=== PATIENT | male | born 1945 | race Caucasian/White ===

== ENCOUNTER 2017-11-03 11:38 | Outpatient (CLI) | payer MEDICARE ==
[2017-11-03 14:52] LABS: Hematocrit 40.3 % (42.0-52.0); Mean Platelet Volume 8.3 fL (7.4-10.4); Red Blood Cell (RBC) Count 3.91 mill/uL (4.70-6.10); White Blood Cell (WBC) Count 7.7 thou/uL (4.8-10.8)
[2017-11-03 15:13] LABS: ALT (SGPT) 58 U/L (8-55); AST (SGOT) 42 U/L (5-34); Alkaline Phosphatase 94 U/L (40-150); Anion Gap 10 mmol/L (10-20); BUN (Urea Nitrogen) 30 mg/dL (8.4-25.7); Bilirubin, Total 1.3 mg/dL (0.2-1.2); Calc. Creatinine Clearance 0 mL/min (70-130); Calcium 9.6 mg/dL (7.8-10.44); Carbon Dioxide 30 mmol/L (23-31); Chloride 103 mmol/L (98-107); Estimated GFR-MDRD 63; Globulin 2.8 g/dL (2.4-3.5); Protein, Total 6.4 g/dL (5.8-8.1)
== END 2017-11-03 11:39 | disposition home or self-care (01) ==
LOC: LABBT 11:38
PROVIDERS: ATTEND Internal Medicine Cardiovascular Disease
DX: Z01.812 Encounter for preprocedural laboratory examination (principal)
CPT/HCPCS: 80053; 85027

== ENCOUNTER 2017-11-05 05:51 | Observation (INO) | payer MEDICARE ==
[2017-11-05] MEDS ORDERED: Diazepam 5 MG TAB ONE (06:38)
[2017-11-05] MEDS ORDERED: Heparin 1000 UNIT/NS 500ML(OR) 1,000 ML ONE (06:40)
[2017-11-05] MEDS ORDERED: Diazepam 5 MG TAB PO SCH (06:45)
[2017-11-05] MEDS ORDERED: Midazolam HCl 2 mg/2 ml Vial ONE (07:36)
[2017-11-05] MEDS ORDERED: Fentanyl 100 MCG/2 ML VIAL ONE ×2 (07:36→12:48)
[2017-11-05] MEDS ORDERED: Nitroglycerin 100MG/250ML BOT 250 ML ONE (07:55)
[2017-11-05] MEDS ORDERED: Heparin 10,000 UNITS/1 ML VIAL ONE (08:19)
[2017-11-05] MEDS ORDERED: Heparin 1000 UNIT/NS 500ML(OR) 500 ML ONE (08:19)
[2017-11-05] MEDS ORDERED: Furosemide 20 MG/2 ML VIAL ONE ×2 (10:15→18:35)
[2017-11-05] MEDS ORDERED: Nitroglycerin 0.4 MG TAB (25 Tab Bottle) ONE (10:22)
[2017-11-05] MEDS ORDERED: Nitroglycerin 2% Ointment 1 INCH/1 GM Packet ONE (10:22)
[2017-11-05] MEDS ORDERED: Sodium Chloride 0.9% 1,000 ML IV SCH ×2 (14:49→18:00)
[2017-11-05] MEDS ORDERED: Fentanyl 100 MCG/2 ML VIAL SLOW IVP SCH (15:00)
[2017-11-05] MEDS ORDERED: Iopamidol 370 76% 100 ML VIAL ONE (16:16)
[2017-11-05] MEDS ORDERED: Iopamidol 370 76% 50 ML VIAL FS ONE (16:16)
[2017-11-05 20:15] VITALS: BMI 35.0
[2017-11-05] MEDS ORDERED: TICAGRELOR 90 MG TABLET PO SCH (21:00)
[2017-11-05] MEDS ORDERED: Lisinopril 5 MG TAB PO SCH (21:00)
[2017-11-05] MEDS ORDERED: Potassium Chloride 20 MEQ TAB PO SCH (21:00)
[2017-11-05] MEDS ORDERED: Carvedilol 6.25 MG TAB PO SCH (21:00)
[2017-11-06 05:18] LABS: #Eosinphils 0.2 thou/uL (0.0-0.7); #Neutrophils 5.8 thou/uL (1.40-6.50); %Eosinophils 2.3 % (0.0-10.0); %Lymphocytes 12.9 % (21.0-51.0); %Monocytes 12.3 % (0.0-10.0); Hematocrit 43.1 % (42.0-52.0); Red Blood Cell (RBC) Count 4.25 mill/uL (4.70-6.10)
[2017-11-06 05:28] LABS: Anion Gap 12 mmol/L (10-20); BUN (Urea Nitrogen) 28 mg/dL (8.4-25.7); Calc. Creatinine Clearance 104 mL/min (70-130); Calcium 9.5 mg/dL (7.8-10.44); Carbon Dioxide 29 mmol/L (23-31); Chloride 102 mmol/L (98-107); Estimated GFR-MDRD 66
[2017-11-06] MEDS ORDERED: Furosemide 20 MG/2 ML VIAL SLOW IVP SCH (06:00)
[2017-11-06] MEDS ORDERED: Clopidogrel Bisulfate 300 MG TAB PO SCH (07:00)
[2017-11-06 07:47] VITALS: TEMP 98.6
[2017-11-06] MEDS ORDERED: Carvedilol 6.25 MG TAB PO SCH ×2 (09:00)
[2017-11-06] MEDS ORDERED: Potassium Chloride 20 MEQ TAB PO SCH (09:00)
[2017-11-06] MEDS ORDERED: Lisinopril 5 MG TAB PO SCH (09:00)
[2017-11-06] MEDS ORDERED: Carvedilol 25 MG TAB PO SCH (09:00)
[2017-11-06 10:12] VITALS: BP 110/73
--- NOTE | 2017-11-06 10:43 | DIS ---
HISTORY: Mr. Rasheed underwent cardiac catheterization yesterday and was found to have a 70% in-stent restenosis of his LAD stent. He had 2 previous nondrug coated stent placed. There is also a 20% pl aque distal to the stent. The patient had 3.5 x 16 mm drug-coated stent placed, post-dilated to 3.5 mm and then 4 mm. The distal vessel appears to be closer to 3-3.25 mm past the stent. Ejection frac tion was 40%. The patient did have some shortness of breath afterwards. He had increase in diastoli c pressure. He did have some degree of heart failure. He diuresed dramatically with 5 liters out ye afternoon and more urine at last night. He feels much better and is released home today on, 1. Aspirin 81 mg a day. 2. Atorvastatin 40 mg a day. 3. Carvedilol 25 mg twice daily. 4. Plavix 75 mg a day. 5. Furosemide 20 mg a day. 6. Lisinopril 5 mg twice daily. 7. Magnesium. 8. Xarelto 15 mg a day, start tomorrow.
[2017-11-06] MEDS ORDERED: Atorvastatin Calcium 40 MG TAB PO SCH (21:00)
[2017-11-07] MEDS ORDERED: Clopidogrel Bisulfate 75 MG TAB PO SCH (09:00)
[2017-11-07] MEDS ORDERED: Furosemide 20 MG TAB PO SCH (09:00)
[2017-11-08] MEDS ORDERED: Rivaroxaban 10 MG TAB PO SCH (18:00)
--- NOTE | 2017-11-21 13:26 | EKG ---
Test Reason : POST STENT Blood Pressure : / mmHG Vent. Rate : 060 BPM Atrial Rate : 227 BPM P-R Int : 000 ms QRS Dur : 088 ms QT Int : 452 ms P-R-T Axes : 000 -03 258 degrees QTc Int : 452 ms Atrial fibrillation Septal infarct , age undetermined Abnormal ECG When compared with ECG of 15-DEC-2014 07:39, No significant change was found Confirmed by ALEK SHAIKH, JENNIFER ([id number]) on 11/21/2017 1:25:49 PM Referred By: THAI Confirmed By:JENNIFER GASTON MD
--- NOTE | 2017-11-21 13:28 | EKG ---
Test Reason : Blood Pressure : / mmHG Vent. Rate : 067 BPM Atrial Rate : 277 BPM P-R Int : 000 ms QRS Dur : 090 ms QT Int : 414 ms P-R-T Axes : 000 -07 237 degrees QTc Int : 437 ms Atrial fibrillation Septal infarct (cited on or before 14-DEC-2014) Abnormal ECG Confirmed by JENNIFER GASTON MD ([id number]) on 11/21/2017 1:27:36 PM Referred By: THAI Confirmed By:JENNIFER GASTON MD
== END 2017-11-06 11:29 | disposition home or self-care (01) ==
LOC: CCL 05:51 → 2SW 19:18
PROVIDERS: ADMIT Internal Medicine Cardiovascular Disease; ATTEND Internal Medicine Cardiovascular Disease
DX: T82.855A Stenosis of coronary artery stent, initial encounter (principal); I25.118 Atherosclerotic heart disease of native coronary artery with other forms of angina pectoris; E78.00 Pure hypercholesterolemia, unspecified; I11.0 Hypertensive heart disease with heart failure; I50.9 Heart failure, unspecified; I48.0 Paroxysmal atrial fibrillation; Z79.82 Long term (current) use of aspirin; Z79.01 Long term (current) use of anticoagulants; Z79.02 Long term (current) use of antithrombotics/antiplatelets; Z79.899 Other long term (current) drug therapy; Z88.6 Allergy status to analgesic agent; Z87.891 Personal history of nicotine dependence; Z86.73 Personal history of transient ischemic attack (TIA), and cerebral infarction without residual deficits
CPT/HCPCS: 76942; 80048; 85025; 85347 ×3; 93005 ×2; 93458; 93798; 96374; 96375; 96376; C1769 ×2; C1874; C1887; C9600; G0378; 36415; 92928; 93010; 99152; 99153; J1644; J1940; J2250; J3010

== ENCOUNTER 2018-03-09 15:02 | Inpatient (IN) | payer MEDICARE ==
[2018-03-09] MEDS ORDERED: Furosemide 100 MG/10 ML VIAL SLOW IVP SCH (15:30)
[2018-03-09 16:01] VITALS: BMI 37.3
[2018-03-09 16:21] LABS: #Eosinphils 0.3 thou/uL (0.0-0.7); #Lymphocytes 1.3 thou/uL (1.20-3.40); #Monocytes 0.8 thou/uL (0.11-0.59); #Neutrophils 4.3 thou/uL (1.40-6.50); %Basophils 0.6 % (0.0-1.0); %Eosinophils 4.9 % (0.0-10.0); %Lymphocytes 18.7 % (21.0-51.0); %Monocytes 11.8 % (0.0-10.0); Hemoglobin 11.8 g/dL (14.0-18.0); Mean Corpuscular Hemoglobin 33.6 pg (27.0-31.0); Mean Platelet Volume 8.3 fL (7.4-10.4); Platelet Count 135 thou/uL (130-400); RBC Distribution Width 13.6 % (11.5-14.5); White Blood Cell (WBC) Count 6.8 thou/uL (4.8-10.8)
[2018-03-09 16:49] LABS: Troponin I 0.014 ng/mL (< 0.028)
[2018-03-09 16:58] LABS: ALT (SGPT) 33 U/L (8-55); AST (SGOT) 23 U/L (5-34); Albumin 3.5 g/dL (3.4-4.8); Alkaline Phosphatase 100 U/L (40-150); Anion Gap 10 mmol/L (10-20); BUN (Urea Nitrogen) 28 mg/dL (8.4-25.7); Bilirubin, Total 0.8 mg/dL (0.2-1.2); Calc. Creatinine Clearance 104 mL/min (70-130); Calcium 8.9 mg/dL (7.8-10.44); Carbon Dioxide 23 mmol/L (23-31); Chloride 113 mmol/L (98-107); Estimated GFR-MDRD 62; Globulin 2.7 g/dL (2.4-3.5); Glucose 82 mg/dL (80-115); Potassium 4.4 mmol/L (3.5-5.1); Protein, Total 6.2 g/dL (5.8-8.1); Sodium 142 mmol/L (136-145)
[2018-03-09] MEDS ORDERED: Potassium Chloride 20 MEQ TAB PO SCH ×2 (17:45)
--- NOTE | 2018-03-09 19:18 | ULT ---
CAROTID DUPLEX ULTRASOUND: 03/09/18 INDICATION: History of syncope. FINDINGS: There is mild atherosclerotic calcification involving the proximal internal carotid arteries bilatera lly. The waveforms and velocities within the internal carotid arteries are within normal limits. Ther e is antegrade flow within both vertebral arteries. Peak systolic velocity of the right CCA was 46.8 cm/s and in the left CCA 47.7 cm/s. Peak systolic velocity in the right ICA was 60.6 cm/s and left ICA was 31.3 cm/s. Right IC/CC ratio is 1.29 and the left is 0.66. IMPRESSION: 1. No hemodynamically significant stenosis. 2. Mildly complex cystic lesion involving the right thyroid gland measuring 1.2 x 1 cm. No follo wup is recommended due to the size of the lesion. POS: [facility]
--- NOTE | 2018-03-09 20:12 | RAD ---
AP VIEW OF THE CHEST: 03/09/18 INDICATION: History of CHF. FINDINGS: There is mild cardiomegaly with mild pulmonary vascular congestion. There is patchy air space opaciti es within the right lower lobe which may reflect edema. There is minimal blunting in the costophrenic angles suspicious for small effusions. There is heel deformity in the right clavicle. There is scatt ered degenerative change. There is postsurgical change involving the left shoulder consistent with a rotator cuff repair. IMPRESSION: 1. Mild cardiomegaly with mild pulmonary vascular congestion. Tiny bilateral pleural effusions. 2. Patchy opacities within the right lower lobe may reflect air space edema or pneumonia. Recomm end followup. POS: [facility]
[2018-03-09] MEDS: Carvedilol 6.25 MG TAB PO SCH (20:20)
[2018-03-09] MEDS: Enoxaparin Sodium 80 MG/0.8 ML SYRINGE SC SCH (20:21)
[2018-03-09] MEDS: Atorvastatin Calcium 40 MG TAB PO SCH (20:21)
[2018-03-09] MEDS ORDERED: Enoxaparin Sodium 60 MG/0.6 ML SYRINGE SC SCH (21:00)
[2018-03-09] MEDS ORDERED: Prevnar 13-Val Conj/PF 0.5 ML SYRINGE IM ONE (21:00)
[2018-03-10 05:11] LABS: Anion Gap 10 mmol/L (10-20); BUN (Urea Nitrogen) 25 mg/dL (8.4-25.7); Calc. Creatinine Clearance 102 mL/min (70-130); Calcium 9.5 mg/dL (7.8-10.44); Carbon Dioxide 26 mmol/L (23-31); Cardiac Risk 3.2 (Less than 4.5); Chloride 108 mmol/L (98-107); Cholesterol 110 mg/dl (< 200 Desired); Estimated GFR-MDRD 60; Glucose 94 mg/dL (80-115); HDL Cholesterol 34 mg/dL (>60 Neg Risk); LDL Cholesterol, Calculated 64 mg/dL; Potassium 4.2 mmol/L (3.5-5.1); Sodium 140 mmol/L (136-145); Triglycerides 60 mg/dL (Less than 150)
[2018-03-10] MEDS: Furosemide 40 MG/4 ML VIAL SLOW IVP SCH ×2 (05:24→15:42)
--- NOTE | 2018-03-10 07:55 | HP ---
HISTORY OF PRESENT ILLNESS: Mr. Rasheed is a very pleasant 72-year-old gentleman. The patient has a long history of chronic atrial fibrillation and congestive heart failure which had been compensated u p until recently. He underwent cardiac catheterization on 2014 and had at that time a nondrug coated stent placed as he was requiring anticoagulation and also is very active with rodeo, therefore he un derwent stent implantation. A year later on 01/2016, he was found to have restenosis and he underwen t repeat stenting. At this time, a 3.5 x 29 nondrug coated stent was placed and postdilated to 4 mm and then approximated 4.5 mm. A year and half later, the patient had restenosis and underwent stenti ng. At this time, a drug-coated stent was placed. A 3.5 x 16 drug-coated stent was placed and postd ilated to 3.5 mm high pressure than 4 mm. He set up well up until recently. He was seen in January an d was noted that he had some shortness of breath and fluid retention and some chest tightness with so me compatible with heart failure and the diuretic dose was increased. He came back to see us in the office on 03/05/2018 after having an episode of syncope. It is concerning that he may have had a mulugeta se in his heart rhythm, monitor was placed and the diuretic was held, came back for followup today. His breathing has worsened. The patient can only walk few steps before getting short of breath. He has no energy. He feels very lightheaded at times and cannot continue to function at home in this [facility]. CURRENT MEDICATIONS: He is on aspirin 81 mg a day, atorvastatin 40 mg a day, Coreg 12.5 mg twice a d ay, lisinopril 10 mg a day, Plavix 75 mg a day and Xarelto 15 mg a day. ALLERGIES: None known. SOCIAL HISTORY: He does not smoke, does not use tobacco, no alcohol. REVIEW OF SYSTEMS: CONSTITUTIONAL: No significant weight gain or loss. VISION: No changes. HEARI NG: No changes. PULMONARY: No cough or wheezing. GASTROINTESTINAL: No nausea, vomiting, diarrhea . SKIN: No rashes. NEUROLOGIC: No unilateral weakness or numbness. PSYCHIATRIC: No unusual depr ession or anxiety. HEMATOLOGIC: No unusual bruising. GENITOURINARY: No burning with urination. EX TREMITIES: He does have a lot of edema. PHYSICAL EXAMINATION: GENERAL: This is a pleasant elderly gentleman says he feels very weak and fatigued, no energy, which is not like it all. VITAL SIGNS: His blood pressure is 120/70, pulse is in the 80s, it is irregular. EYES: Sclerae nonicteric. MOUTH: Mucous membranes moist. NECK: Supple, no lymphadenopathy. LUNGS: Clear, no wheezing, rales or rhonchi. It seems like there is some decreased breath sounds at the right. CARDIAC: Irregularly irregular. No murmur, rub or gallop. ABDOMEN: Soft, nontender. EXTREMITIES: There is moderate to severe peripheral edema. IMAGING DATA: EKG reveals atrial fibrillation with controlled ventricular response. ASSESSMENT: 1. Congestive heart failure with systolic and diastolic combined in view of atrial fibrillation. Mo st recent catheterization showed ejection fraction of 40%, which is where he has been mostly. 2. The patient is currently volume overloaded and short of breath with minimal activity. 3. Coronary artery disease and had stent implantation on three occasions in the LAD. If he has had further restenosis, would probably need surgical therapy. 4. Atrial fibrillation. He has been on Xarelto and slightly reduced dose as he is on dual antiplate let drugs. PLAN: 1. Intravenous diuretic. 2. Repeat echo. 3. Carotid Doppler in view of syncope. 4. He will be monitored in case he is having pauses so far that the home monitor did not have any pa uses. Further recommendations are based on clinical course. We will probably need cardiac catheteri zation this admission. If he has had restenosis, may need surgical therapy. We will hold Plavix as well.
[2018-03-10] MEDS: Lisinopril 10 MG TAB PO SCH (08:20)
[2018-03-10] MEDS: Enoxaparin Sodium 80 MG/0.8 ML SYRINGE SC SCH ×3 (08:20→20:08)
[2018-03-10] MEDS: Carvedilol 6.25 MG TAB PO SCH ×2 (08:20→20:07)
[2018-03-10] MEDS: Aspirin 81 mg Enteric Coated Tablet PO SCH (08:20)
[2018-03-10] MEDS ORDERED: Clopidogrel Bisulfate 75 MG TAB PO SCH (09:00)
[2018-03-10] MEDS ORDERED: Communication Order-Pharmacy FS SCH (10:00)
--- NOTE | 2018-03-10 10:07 | PRG ---
DATE OF SERVICE: 03/10/2018 HISTORY: Mr. Rasheed feels better today. He put out 5 liters of urine last night. PHYSICAL EXAMINATION: VITAL SIGNS: Blood pressure is still variable, it is 155/117 recorded earlier, 146/92 another readin g. LUNGS: Clear. CARDIAC: Irregular, irregular. ABDOMEN: Soft, nontender. EXTREMITIES: Mild edema. PERTINENT LABORATORY DATA: BNP 1361, potassium 4.2. The troponin level 0.014, LDL 64. ASSESSMENT: 1. Congestive heart failure, systolic/diastolic combined, acute on chronic, improving, but he was hy poxic yesterday. Oxygen saturation 87%. 2. Previous coronary disease with stent implantation in the LAD on three occasions. Most recent alejandrina nt was a drug-coated stent. PLAN: 1. Echocardiogram to be done today. 2. Cardiac catheterization tomorrow. If the patient has had restenosis would likely need bypass lenin araceli. 3. He is on enoxaparin presently. He has been taken off of the Xarelto.
[2018-03-10] MEDS: Atorvastatin Calcium 40 MG TAB PO SCH (20:08)
[2018-03-11] MEDS: Carvedilol 6.25 MG TAB PO SCH ×2 (05:49→21:04)
[2018-03-11] MEDS ORDERED: Diazepam 5 MG TAB PO SCH (06:00)
[2018-03-11] MEDS ORDERED: Sodium Chloride 0.9% 1,000 ML IV SCH (06:00)
[2018-03-11] MEDS ORDERED: Lidocaine 1% (PF) 30 ML VIAL ONE (06:40)
[2018-03-11] MEDS ORDERED: Fentanyl 100 MCG/2 ML VIAL ONE (07:39)
[2018-03-11] MEDS ORDERED: Midazolam HCl 2 mg/2 ml Vial ONE (07:39)
[2018-03-11] MEDS ORDERED: Metoprolol Tartrate 5 MG/5 ML VIAL ONE (07:50)
[2018-03-11] MEDS ORDERED: Nitroglycerin 0.4 MG TAB (25 Tab Bottle) SL PRN (08:20)
[2018-03-11] MEDS ORDERED: Acetaminophen/Codeine 30-300mg Tablet PO PRN ×2 (08:20)
[2018-03-11] MEDS ORDERED: traMADol HCl 50 MG TAB PO PRN (08:20)
[2018-03-11] MEDS ORDERED: Sodium Chloride 0.9% 200 ML IV SCH (08:30)
[2018-03-11] MEDS: Aspirin 81 mg Enteric Coated Tablet PO SCH (09:54)
[2018-03-11] MEDS: Lisinopril 10 MG TAB PO SCH (09:55)
[2018-03-11] MEDS: Furosemide 40 MG/4 ML VIAL SLOW IVP SCH ×2 (09:56→13:46)
[2018-03-11] MEDS ORDERED: Iopamidol 370 76% 100 ML VIAL ONE (10:13)
[2018-03-11] MEDS ORDERED: Lidocaine 1% w/Epinephrine 1:100K 30 ML VIAL ONE (11:35)
--- NOTE | 2018-03-11 12:57 | CON ---
DATE OF CONSULTATION: 03/11/2018 REFERRING PHYSICIAN: Dr. Tianna Stone HISTORY OF PRESENT ILLNESS: I am seeing Mr. Rasheed at our [facility] telemetry floor as an electrophysiology security consultant for the following problems for: 1. Recurrent syncopal spells. 2. Chronic systolic congestive heart failure with ischemic cardiomyopathy. A. Left ventricular ejection fraction 40-45% on a 2D echocardiogram on 03/10/2018, mild right ventri cular enlargement. Left atrial enlargement, mild to moderate mitral regurgitation, moderate tricuspi d regurgitation. B. Left heart catheterization today reveals a 40% global hypokinesis, a patent LAD stent, normal cir cumflex and nondominant RCA. 3. Chronic atrial fibrillation. 4. Chronic risk factors including hyperlipidemia, hypertension. ALLERGIES: None. MEDICATIONS AT HOME: Include aspirin, atorvastatin, Coreg, lisinopril, Plavix and Xarelto 50 mg a da y. SUBJECTIVE: Mr. Rasheed is here, admitted to Dr. Stone due to a recurrent syncopal spells. He was a lso having progressive dyspnea and fluid retention. He required a diuretic increase, but then develo ped syncopal spell, felt to be possibly orthostatic, but rhythm related issues could not completely b e ruled out. His episodes are described in various settings, one after bending over and straightenin g up, lightheadedness, no tongue biting or seizure activities or incontinence is documented. Other e pisodes also happen at night when he was getting up to the toilet. Eventually his diuretic dose was again decreased but his dyspnea worsened again. Finally he underwent a left heart catheterization as per Dr. Stone today. I was consulted for further evaluation of syncopal spells. Currently, he is feeling well, recovering from a left heart catheterization. Denies PND, orthopnea, lower extremity edema. No fever, chills or cough. No dizziness at this point. REVIEW OF SYSTEMS: Rest of 12 point system otherwise unremarkable. PAST MEDICAL HISTORY: As above. He had a history of coronary artery disease. Again, heart catheter ization in 2014 revealing LAD territories stenosis, which was stented. In 01/2016 had restenosis in the same area which required repeat stenting. Subsequently he did well up until recently as describe d above. SOCIAL HISTORY: The patient denies smoking, ETOH or drug use. He is active ranching and rodeo. FAMILY HISTORY: Noncontributory. OBJECTIVE: VITAL SIGNS: Blood pressure is 138/88, heart rate 75, respiration is 18, temperature 98.2 degrees Fa hrenheit. GENERAL: He is an alert, oriented man in no apparent distress. NECK: Supple. Jugular veins not distended. CHEST: Coarse without crackles. CARDIOVASCULAR: Heart sounds are irregularly irregular. S1, S2, variable. No murmur or gallop. ABDOMEN: Benign. Bowel sounds positive. EXTREMITIES: Lower extremities without edema, clubbing or cyanosis. Pulses are adequate. NEUROLOGIC: Patient nonfocal. MUSCULOSKELETAL: No joint deformity. SKIN: Without rash. DATABASE: EKG reveals atrial fibrillation, no ST-T changes. LABORATORY DATA: White blood cell count 6.8, hemoglobin 11.8, platelet count is 135. Sodium 140, po tassium 4.2, BUN is 25, creatinine 1.19. ASSESSMENT AND PLAN: 1. Mr. Rasheed is a very pleasant 72-year-old man with prior history of chronic atrial fibrillation, coronary artery disease who also has recurrent syncopal spells. The episodes do suggest potential he modynamic etiology, but arrhythmias cannot be completely ruled out, especially in view of his only at rial fibrillation, adrienne and tachyarrhythmia's are possible, but also cannot rule out ventricular tac hyarrhythmia's as well and in view of his mild to moderate reduced left ventricular systolic function . So far, none demonstrated. A LINQ recorder would be very reasonable to proceed. I will have this arranged. 2. Should the significant nonsustained ventricular arrhythmias or sustained arrhythmias are present, he will likely benefit from EP study and ICD implantation as well. For now, though, do monitoring w ill be performed first. The procedure, risks, benefits were discussed with the patient and the family. They are interested a nd willing to proceed. We will follow with you. Thank you for the consult.
--- NOTE | 2018-03-11 13:23 | OP ---
DATE OF PROCEDURE: 03/11/2018 PROCEDURE: Loop recorder implant. SURGEON: Dr. David Boyd REFERRING PHYSICIAN: Dr. Tianna Stone REASON FOR PROCEDURE: 1. Mr. Rasheed has been passing out with a history of atrial fibrillation. Lo op recorder insertion is planned for further monitoring and has also history of LV dysfunction. PROCEDURE: The prepectoral area was prepped, draped, anesthetized using subcutaneous lidocaine and i n the 4th intercostal space on the left of the sternum an incision was made with the LINQ insertion t ool kit. The standard link recorder was implanted. At the conclusion of the wound was closed with Dermabond. CONCLUSION: Successful LINQ recorder implant. PLAN: Continue monitoring.
[2018-03-11] MEDS: Atorvastatin Calcium 40 MG TAB PO SCH (21:04)
[2018-03-12 05:08] LABS: Anion Gap 9 mmol/L (10-20); BUN (Urea Nitrogen) 24 mg/dL (8.4-25.7); Calc. Creatinine Clearance 91 mL/min (70-130); Calcium 9.5 mg/dL (7.8-10.44); Carbon Dioxide 31 mmol/L (23-31); Chloride 106 mmol/L (98-107); Estimated GFR-MDRD 58; Glucose 92 mg/dL (80-115); Potassium 4.1 mmol/L (3.5-5.1); Sodium 142 mmol/L (136-145)
[2018-03-12] MEDS ORDERED: Furosemide 40 MG/4 ML VIAL SLOW IVP SCH (06:00)
[2018-03-12] MEDS ORDERED: Furosemide 20 MG/2 ML VIAL SLOW IVP SCH (06:00)
[2018-03-12] MEDS: Furosemide 40 MG/4 ML VIAL SLOW IVP SCH (07:41)
[2018-03-12 07:57] VITALS: TEMP 97.5
[2018-03-12] MEDS ORDERED: Metolazone 5 MG TAB PO SCH (08:00)
[2018-03-12] MEDS ORDERED: Potassium Chloride 20 MEQ TAB PO SCH ×2 (08:00)
[2018-03-12] MEDS ORDERED: Clopidogrel Bisulfate 75 MG TAB PO SCH (09:00)
[2018-03-12] MEDS: Aspirin 81 mg Enteric Coated Tablet PO SCH (10:41)
[2018-03-12] MEDS: Carvedilol 6.25 MG TAB PO SCH (10:41)
[2018-03-12] MEDS: Lisinopril 10 MG TAB PO SCH (10:42)
--- NOTE | 2018-03-12 13:53 | DIS ---
DATE OF DISCHARGE: 03/12/2018 FINAL DIAGNOSES: 1. Congestive heart failure, systolic, diastolic mixed, ejection fraction 40%. 2. Syncopal episodes, probably related to orthostatic hypotension. No evidence of significant arrhy thmias causing syncope at this point. 3. No evidence of in-stent restenosis at catheterization. 4. Chronic atrial fibrillation. MEDICATIONS AT THE TIME OF DISCHARGE: 1. Carvedilol 12.5 mg twice a day. 2. Demadex 20 mg a day at 5:00 p.m. 3. Lisinopril 10 mg a day. 4. Aspirin 81 mg a day. 5. Plavix 75 mg a day. 6. Xarelto 15 mg a day. 7. Atorvastatin 40 mg a day. Needs to come and see us in the office in about 3 weeks, bring all medicines. He also has a LINQ rec order. Please see admission note. The patient was admitted to the hospital with intermittent shortness of b reath with severe congestive failure and hypoxemia. He was given diuresis with good response. He re cently had had previous episodes of syncope. It is thought to be most likely orthostatic hypotension , but the monitor was placed to be certain. The patient does mention was admitted with intractable h eart failure. The patient had a BNP of 1361. He was hypoxemic initially. Troponin level is 0.014 w hich is within normal range for a patient with heart failure. The patient underwent cardiac catheter ization showing no evidence of in-stent restenosis. The LAD has been stented 3 times, most recently with a drug-coated stent about 4 months ago. The patient responded to intravenous diuretics. End di astolic pressure was acceptable at the time of catheterization. At this time it appears that the pat ient's main problems are congestive heart failure as well as orthostatic hypotension as well as atria l fibrillation. With the LINQ monitor in place if there is any evidence of ventricular arrhythmias, defibrillator would be indicated if there is evidence of pauses, then a pacemaker would be indicated. At this time, he does not meet criteria for either device. The patient will be asked to see me in the office in a few weeks, bring all medicines.
[2018-03-12 14:33] VITALS: BP 136/78
[2018-03-12] MEDS ORDERED: Rivaroxaban 10 MG TAB PO SCH (17:00)
[2018-03-13] MEDS ORDERED: Torsemide 20 MG TAB PO SCH (17:00)
[2018-03-13] MEDS ORDERED: Rivaroxaban 10 MG TAB PO SCH (18:00)
--- NOTE | 2018-03-14 08:45 | EKG ---
Test Reason : Blood Pressure : / mmHG Vent. Rate : 076 BPM Atrial Rate : 375 BPM P-R Int : 000 ms QRS Dur : 088 ms QT Int : 394 ms P-R-T Axes : 000 -02 249 degrees QTc Int : 443 ms Atrial fibrillation Nonspecific ST and T wave abnormality , probably digitalis effect Abnormal ECG When compared with ECG of 06-NOV-2017 06:51, No significant change was found Confirmed by ALEK SHAIKH, JENNIFER ([id number]) on 03/14/2018 8:45:22 AM Referred By: THAI Confirmed By:JENNIFER GASTON MD
== END 2018-03-12 10:57 | disposition home or self-care (01) | DRG 260 ==
LOC: UNDOADMOB 15:02 → 2SW 15:02 → INTOOBSV 03-10 09:59 → OBSVTOIN 03-10 09:59 → 2NO 03-10 11:33 → 2SW 03-10 11:33 → 2NO 03-10 12:45 → OBSVTOIN 03-10 12:45
PROVIDERS: ADMIT Internal Medicine Cardiovascular Disease; ATTEND Internal Medicine Cardiovascular Disease
PROC: 0JH632Z Insertion of Monitoring Device into Chest Subcutaneous Tissue and Fascia, Percutaneous Approach (ICD-10-PCS; principal; 2018-03-11)
PROC: 4A023N7 Measurement of Cardiac Sampling and Pressure, Left Heart, Percutaneous Approach (ICD-10-PCS; 2018-03-11)
PROC: B2111ZZ Fluoroscopy of Multiple Coronary Arteries using Low Osmolar Contrast (ICD-10-PCS; 2018-03-11)
PROC: B2151ZZ Fluoroscopy of Left Heart using Low Osmolar Contrast (ICD-10-PCS; 2018-03-11)
DX: I95.1 Orthostatic hypotension (principal); I50.43 Acute on chronic combined systolic (congestive) and diastolic (congestive) heart failure; I11.0 Hypertensive heart disease with heart failure; I25.5 Ischemic cardiomyopathy; I48.2 Chronic atrial fibrillation; I25.10 Atherosclerotic heart disease of native coronary artery without angina pectoris; E78.5 Hyperlipidemia, unspecified; R09.02 Hypoxemia; Z79.02 Long term (current) use of antithrombotics/antiplatelets; Z79.01 Long term (current) use of anticoagulants; Z79.82 Long term (current) use of aspirin; Z79.899 Other long term (current) drug therapy; Z95.5 Presence of coronary angioplasty implant and graft
CPT/HCPCS: 33282; 36415; 71045; 76942; 80048; 80053; 80061; 83880; 84484; 85025; 90471; 90670; 93005; 93010; 93306; 93458; 93798; 93880; 99152; A4216; C1764; G0009; J1644; J1650; J1940; J2001; J2250; J3010